=== PATIENT | male | born 1935 | race Caucasian/White ===

== ENCOUNTER 2020-07-18 12:00 | Day surgery (SDC) | payer MEDICARE ==
[2020-07-18] MEDS ORDERED: Depo-Medrol 40 MG/ML IM ONE (12:01)
[2020-07-18] MEDS ORDERED: Xylocaine 1% Vial 30 ML PF IJ ONE (12:01)
[2020-07-18] MEDS ORDERED: BUPIVACAINE 0.5% VIAL IJ ONE (12:01)
[2020-07-18] MEDS ORDERED: Decadron 4 MG INJ IV ONE (12:01)
[2020-07-18] MEDS ORDERED: DIPRIVAN 200 MG/20 ML IV ONE (13:32)
[2020-07-18] MEDS ORDERED: Ketamine HCl 50 MG/ML ONE (13:32)
--- NOTE | 2020-07-18 14:43 | XRAY ---
Indication: Left SI joint and piriformis injection. Intraoperative fluoroscopy provided for 36 seconds. 2 digital spot images submitted for interpretation demonstrates posterior needle tip projecting over the inferior left SI joint. Second needle tip projects over the expected left piriformis muscle with small amount of contrast injected for needle tip placement. Correlate with intraoperative findings/report.
--- NOTE | 2020-07-18 14:45 | XRAY ---
Indication: Left hip injection. Intraoperative fluoroscopy provided for 13 seconds. Single digital spot image submitted for interpretation demonstrates needle tip projecting lateral to the right femur head. Small amount of contrast injected for needle tip placement. Correlate with intraoperative findings/report.
--- NOTE | 2020-07-18 15:16 | XRAY ---
36 seconds fluoroscopy time in surgery for left SI joint and piriformis muscle injections.
--- NOTE | 2020-07-18 15:16 | XRAY ---
13 seconds fluoroscopy time in surgery for intra-articular injection of the left hip.
[2020-07-18] MEDS ORDERED: Lactated Ringers 1,000 ML IV ONE (16:16)
== END 2020-07-18 14:05 | disposition home or self-care (01) ==
LOC: SDC-PAIN 12:00
PROVIDERS: ATTEND Psychiatry & Neurology Pain Medicine
DX: M16.12 Unilateral primary osteoarthritis, left hip (principal); M46.1 Sacroiliitis, not elsewhere classified; M79.18 Myalgia, other site; I10 Essential (primary) hypertension; I25.10 Atherosclerotic heart disease of native coronary artery without angina pectoris; M19.90 Unspecified osteoarthritis, unspecified site; C61 Malignant neoplasm of prostate; Z79.01 Long term (current) use of anticoagulants
CPT/HCPCS: 20552; 20610; 27096; 72202; 73501; 77002; G0260; J1030; J1100; J2001; J2704; Q9966

== ENCOUNTER 2020-09-12 09:09 | Day surgery (SDC) | payer MEDICARE ==
[2020-09-12] MEDS ORDERED: BUPIVACAINE 0.5% VIAL IJ ONE (09:10)
[2020-09-12] MEDS ORDERED: Depo-Medrol 40 MG/ML IM ONE (09:10)
[2020-09-12] MEDS ORDERED: Sodium Chloride 0.9(Preservative Free) 10 ML IJ ONE (09:10)
[2020-09-12 10:00] LABS: INR 1.32 (0.8-3.0)
[2020-09-12] MEDS ORDERED: DIPRIVAN 200 MG/20 ML IV ONE (10:54)
--- NOTE | 2020-09-12 12:11 | XRAY ---
39 seconds fluoroscopy time in surgery for left L4-S1 transforaminal MARY.
--- NOTE | 2020-09-12 12:11 | XRAY ---
Indication: Left L4-S1 transforaminal MARY. Intraoperative fluoroscopy provided for 39 seconds. 4 digital spot images submitted for interpretation demonstrate posterior needle tips projecting over the expected left L4 and L5 nerve roots. Small amount of contrast injected for needle tip placement. Correlate with intraoperative findings/report.
--- NOTE | 2020-09-12 12:11 | XRAY ---
Indication: Left greater trochanter injection. Intraoperative fluoroscopy provided for 7 seconds. Single digital spot image obtained prone submitted for interpretation demonstrate needle tip just lateral to the left greater trochanter. Small amount of contrast injected for needle tip placement. Correlate with intraoperative findings/report.
--- NOTE | 2020-09-12 12:20 | XRAY ---
7 seconds fluoroscopy time in surgery for injection of the greater trochanter of the left hip.
[2020-09-12] MEDS ORDERED: Lactated Ringers 1,000 ML IV ONE (16:03)
== END 2020-09-12 11:26 | disposition home or self-care (01) ==
LOC: SDC-PAIN 09:09
PROVIDERS: ATTEND Psychiatry & Neurology Pain Medicine
DX: M54.16 Radiculopathy, lumbar region (principal); M16.12 Unilateral primary osteoarthritis, left hip; I10 Essential (primary) hypertension; I25.10 Atherosclerotic heart disease of native coronary artery without angina pectoris; C61 Malignant neoplasm of prostate; Z79.01 Long term (current) use of anticoagulants; Z79.899 Other long term (current) drug therapy
CPT/HCPCS: 36415; 72100; 73501; 77002; 77003; 85610; J1030; J2704

== ENCOUNTER 2020-10-17 10:07 | Day surgery (SDC) | payer MEDICARE ==
[2020-10-17] MEDS ORDERED: Xylocaine 1% Vial 30 ML PF IJ ONE (10:08)
[2020-10-17] MEDS ORDERED: Depo-Medrol 40 MG/ML IM ONE (10:08)
[2020-10-17] MEDS ORDERED: Sodium Chloride 0.9(Preservative Free) 10 ML IJ ONE (10:08)
[2020-10-17 10:57] LABS: INR 1.23 (0.8-3.0); PROTIME 13.9 SECONDS (8.83-12.87)
[2020-10-17] MEDS ORDERED: DIPRIVAN 200 MG/20 ML IV ONE (12:08)
--- NOTE | 2020-10-17 13:13 | XRAY ---
Indication: Caudal MARY. Intraoperative fluoroscopy provided for 40 seconds. Single digital spot images submitted for interpretation demonstrate caudal posterior needle tip projecting mid sacrum. Small amount of contrast injected for needle tip placement. Correlate with intraoperative findings/report.
--- NOTE | 2020-10-17 14:17 | XRAY ---
4o seconds fluoroscopy time in surgery for caudal MARY.
[2020-10-17] MEDS ORDERED: Lactated Ringers 1,000 ML IV ONE (15:41)
== END 2020-10-17 12:46 | disposition home or self-care (01) ==
LOC: SDC-PAIN 10:07
PROVIDERS: ATTEND Psychiatry & Neurology Pain Medicine
DX: M54.16 Radiculopathy, lumbar region (principal); I10 Essential (primary) hypertension; I25.10 Atherosclerotic heart disease of native coronary artery without angina pectoris; M19.90 Unspecified osteoarthritis, unspecified site; Z79.01 Long term (current) use of anticoagulants; Z79.899 Other long term (current) drug therapy
CPT/HCPCS: 36415; 62323; 72020; 77003; 85610; J1030; J2001; J2704; Q9966